=== PATIENT | male | born 1985 | race Caucasian/White ===

== ENCOUNTER 2016-09-14 17:05 | Inpatient (IN) ==
[2016-09-14 17:47] LABS: Basophils % 0.8 %; Eosinophils % 1.7 %; Immature Granulocytes % 0.4 % (0-4); Immature Platelets 4.3 % (1.1-6.1); Lymphocytes # 0.5 K/mcL (0.6-4.6); Lymphocytes % 19.4 %; Mean Corpuscular HGB Conc 30.5 g/dL (31.6-35.5); Mean Corpuscular Hemoglobin 38.6 pg (28.0-33.3); Mean Corpuscular Volume 126.5 fL (83.0-100.0); Monocytes # 0.2 K/mcL (0.0-1.3); Monocytes % 6.2 %; Neutrophils # 1.7 K/mcL (1.6-8.9); Nucleated Red Blood Cells 0.8 /100 WBC (0); Platelet Count 183 K/mcL (140-400); Red Blood Count 1.66 M/mcL (4.19-5.50); Red Cell Distribution Width 19.7 % (11.5-14.5); Segmented Neutrophils % 71.5 %
--- NOTE | 2016-09-14 17:48 | Emergency Department Note ---
Disposition Clinical Impression: Symptomatic anemia, Hereditary hemochromatosis Disposition: Admitted As Inpatient Condition: Good [facility] Provider[facility] - Forms: ED Satisfaction Letter Time of Disposition: 19:24 Weakness HPI - General Chief complaint: ED Weakness Stated complaint: low hgb/weakness Time Seen by Provider: 09/14/16 17:16 Source: patient, EMS Limitations: no limitations Nursing Notes Reviewed: Yes Vital Signs Reviewed: Yes - History of Present Illness Pt Subjective Complaint: generalized weakness/fatigue Onset (ago): day(s) (1) Duration: constant, gradually worsening Location: generalized Pain Scale: 0 Improves with: none Worsens with: exertion Context: history of similar Associated symptoms: Denies: chest pain, confusion, dark stools, diaphoresis, dysuria - Related Data Allergies Allergy/AdvReac Type Severity Reaction Status Date / Time No Known Allergies Allergy Verified 05/10/16 22:58 All systems ED: reviewed and negative except as stated. Constitutional: Reports: weakness. Denies: fever, chills Cardiovascular: Denies: chest pain, palpitations Gastrointestinal: Denies: hematemesis, melena, hematochezia Past Medical History - Past Medical History Source: patient, old records reviewed, nursing notes reviewed Medical history: Reports: GERD, hypertension Surgical history: Reports: non-contributory Psychiatric history: Reports: no psych history - Social History Smoking Status: Never smoker Smokeless Tobacco Status: No Alcohol use: Reports: none Drug use: Reports: none Physical Exam - General Limitations: no limitations General appearance: alert, in no apparent distress - Head Head exam: atraumatic, normocephalic, normal inspection - Eye Eye exam: Present: other (pale conjunctivae) - Expanded Eye Exam Pupils: Left: reactive - ENT ENT exam: normal exam, normal oropharynx, mucous membranes moist - Expanded ENT Exam External ear exam: Present: normal external inspection Mouth exam: Present: normal external inspection Teeth exam: Present: normal inspection Throat exam: Present: normal inspection - Neck Neck exam: Present: normal inspection, full ROM, trachea midline - Chest Chest inspection: Present: normal inspection, symmetric chest wall rise - Respiratory Respiratory exam: Present: normal lung sounds bilaterally - Cardiovascular Cardiovascular exam: Present: regular rate, normal rhythm, normal heart sounds - Abdominal Exam Abdominal exam: Present: soft, Non-Tender. Absent: tenderness, distention, guarding, rebound, rigidity - Extremities Exam Extremities exam: Present: normal inspection, full ROM. Absent: tenderness, pedal edema - Expanded Upper Extremity Exam Shoulder exam: Present: normal inspection, full ROM Arm exam: Present: normal inspection, full ROM Elbow exam: Present: normal inspection, full ROM Forearm/Wrist exam: Present: normal inspection, full ROM Hand exam: Present: normal inspection, full ROM Vascular exam: Normal: capillary refill, radial pulse - Expanded Lower Extremity Exam Hip/Pelvis exam: Present: normal inspection, full ROM Upper leg exam: Present: normal inspection, full ROM Knee exam: Present: normal inspection, full ROM Lower leg exam: Present: normal inspection, full ROM Ankle exam: Present: normal inspection, full ROM Foot/toe exam: Present: normal inspection, full ROM Neurovascular/Tendon exam: Absent: motor deficit, sensory deficit, tendon deficit - Back Exam Back exam: Present: normal inspection, full ROM. Absent: tenderness - Neurological Exam Neurological exam: Present: alert, oriented X3 - Expanded Neurological Exam Patient oriented to: Present: person, place, time Coma Scale Eye Opening: Spontaneous Coma Scale Motor Response: Obeys Commands Coma Scale Verbal Response: Oriented Coma Scale Total: 15 - Psychiatric Psychiatric exam: Present: normal affect, normal mood - Skin Skin exam: Present: warm, dry, intact, normal color Course Vital Signs Temperature 98.9 F 09/14/16 17:08 Pulse Rate 109 09/14/16 17:08 Respiratory Rate 20 09/14/16 17:08 Blood Pressure 163/91 09/14/16 17:08 O2 Sat by Pulse Oximetry 97 09/14/16 17:08 Temperature 98.9 F 09/14/16 17:08 Pulse Rate 113 09/14/16 19:09 Respiratory Rate 18 09/14/16 19:09 Blood Pressure 151/80 09/14/16 19:09 O2 Sat by Pulse Oximetry 96 09/14/16 19:09 Oxygen Delivery Oxygen Delivery Room Air Weakness - Lab Data Result diagrams: 09/14/16 17:38 Lab Results 09/14/16 Range/Units 17:38 WBC 2.4 L (4.3-11.1) K/mcL RBC 1.66 L (4.19-5.50) M/mcL Hgb 6.4 L (12.9-16.9) g/dL Hct 21.0 L (37.5-50.1) % MCV 126.5 H (83.0-100.0) fL MCH 38.6 H (28.0-33.3) pg MCHC 30.5 L (31.6-35.5) g/dL RDW 19.7 H (11.5-14.5) % Plt Count 183 (140-400) K/mcL MPV 10.0 (9.4-12.4) fL Immature Gran % 0.4 (0-4) % Seg Neutrophils % 71.5 % Lymphocytes % 19.4 % Monocytes % 6.2 % Eosinophils % 1.7 % Basophils % 0.8 % Neutrophils # 1.7 (1.6-8.9) K/mcL Lymphocytes # 0.5 L (0.6-4.6) K/mcL Monocytes # 0.2 (0.0-1.3) K/mcL Eosinophils # 0.0 (0.0-0.6) K/mcL Basophils # 0.0 (0.0-0.2) K/mcL Nucleated RBCs/100 WBC 0.8 H (0) /100 WBC Immature Plt Fraction 4.3 (1.1-6.1) % Polychromasia 1+ A (Not Present) Critical Care Time Critical Care Time: Yes Total Critical Care Time: 35 Attestation: Critical care performed: Time is exclusive of separately billable procedures. Time includes: direct patient care, patient reassessment, coordination of patient care, interpretation of data (laboratory data, radiology data, and respiratory data), review of patient's medical records, medical consultation and documentation of patient care. Procedures included in critical care time: Procedures excluded from critical care time:
[2016-09-14 18:09] LABS: Hemoglobin 6.4 g/dL (12.9-16.9)
[2016-09-14 18:11] LABS: Polychromasia 1+ (Not Present)
[2016-09-14] MEDS ORDERED: Naloxone 0.4 MG/ML INJ IVP PRN ×2 (21:14→21:31)
[2016-09-14] MEDS ORDERED: Ibuprofen 400 MG TABLET PO PRN (21:20)
--- NOTE | 2016-09-14 21:52 | Internal Med History&Physical ---
Date of Encounter: 09/14/16 Time of Encounter: 21:46 Assessment and Plan (1) Symptomatic anemia Current visit: Yes Status: Acute Trend H/H, to get 2 pRBC. Check H/H in the a.m (2) Hereditary hemochromatosis Current visit: Yes Status: Acute [facility]. Continue follow up with GI and heme outpatient (3) GERD (gastroesophageal reflux disease) Current visit: Yes Status: Acute Protonix. COntinue to monitor closely Internal Medicine - H&P: HPI Chief complaint: dizziness, shaky, confusion Admitted From: Home Plans for Post Hospital Care: Home History of present illness: Mr. Silverman is a 31 year old male which hx of reported hemochromatosis who presents with symptomatic anemia. He woke up early this morning with dizziness, confused and shaky. No improving or relieving factors. Worsen with exertion. On review, he has required frequent blood transfusion since this year in April and August 2016. 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 Past Med Surg Social Fam HX - Past Medical History Source: patient Medical history: GERD, hypertension Psychiatric history: no psych history - Past Surgical History Surgical History: no surgical history, non-contributory - Social History Smoking Status: Never smoker Smokeless Tobacco Status: No Alcohol use: none Drug use: none - Family History Father Adopted: No Hx Family Cancer: Yes Internal Medicine - H&P: Meds Pantoprazole Sodium [Protonix] 40 mg PO DAILY 09/14/16 [History] Allergies No Known Allergies Allergy (Verified 09/14/16 19:46) All Systems PM: A 10-system review of systems was performed and is negative for pertinent findings except as documented above in the HPI. Review of systems: ROS. 14 point review of systems reviewed. Pertinent positive or negative as per HPI or otherwise reviewed as negative - Constitutional Vitals: Temp Pulse Resp BP Pulse Ox 98.9 F 105 18 155/86 97 09/14/16 21:24 09/14/16 21:24 09/14/16 21:24 09/14/16 21:24 09/14/16 21:24 Exam: General - AAO x 3 Psych - Appropriate affect/speech. No agitation Eyes - EJ. Eye lids intact. No scleral icterus ENT - Oral mucosa pink, dentition intact. External ear clear/dry/intact. No thyromegaly Lymphatics - No cervical/inguinal lympadenopathy Neuro - No gross peripheral or central neuro deficits with intact CN 2-12 exam Heart - Sinus. RRR. S1 and S2 present. No added HS/murmurs appreciated. No elevated JVD appreciated. No calf swellings/erythema Lung - Adequate air entry b/l, No crackes/wheezes appreciated GI - Soft, non-tender. No hepatosplenomegaly/ascities. BS+ - No CVA/suprapubic tenderness or palpable bladder distension Skin - Intact. No rash/petechiae/ecchymosis. Warm extremities MSK - Joints with normal ROM. No joint swellings Internal Med - H&P Results - Labs CBC & Chem 7: 09/14/16 17:38
[2016-09-14] MEDS ORDERED: 0.9 % Sodium Chloride 250 ML ONE (23:40)
[2016-09-15] MEDS ORDERED: 0.9 % Sodium Chloride 250 ML ONE (03:43)
[2016-09-15 05:23] LABS: Basophils % 0.8 %; Eosinophils # 0.1 K/mcL (0.0-0.6); Eosinophils % 2.1 %; Hematocrit 22.6 % (37.5-50.1); Hemoglobin 6.9 g/dL (12.9-16.9); Immature Granulocytes % 1.2 % (0-4); Immature Platelets 6.3 % (1.1-6.1); Lymphocytes # 0.7 K/mcL (0.6-4.6); Lymphocytes % 29.9 %; Mean Corpuscular HGB Conc 30.5 g/dL (31.6-35.5); Mean Corpuscular Hemoglobin 37.3 pg (28.0-33.3); Mean Corpuscular Volume 122.2 fL (83.0-100.0); Mean Platelet Volume 10.1 fL (9.4-12.4); Monocytes # 0.2 K/mcL (0.0-1.3); Monocytes % 6.6 %; Neutrophils # 1.4 K/mcL (1.6-8.9); Nucleated Red Blood Cells 1.2 /100 WBC (0); Platelet Count 168 K/mcL (140-400); Red Blood Count 1.85 M/mcL (4.19-5.50); Segmented Neutrophils % 59.4 %
[2016-09-15 05:46] LABS: Anisocytosis 2+ (Not Present); Hypochromasia Present (Not Present); Polychromasia 1+ (Not Present)
[2016-09-15 05:47] LABS: Macrocytosis Present (Not Present)
[2016-09-15 05:48] LABS: Platelet Estimate Normal (Normal)
[2016-09-15 07:48] VITALS: BP 142/68
[2016-09-15 08:53] LABS: Basophils # 0.1 K/mcL (0.0-0.2); Basophils % 1.4 %; Eosinophils # 0.1 K/mcL (0.0-0.6); Eosinophils % 2.3 %; Immature Granulocytes % 0.6 % (0-4); Lymphocytes # 0.7 K/mcL (0.6-4.6); Lymphocytes % 20.1 %; Mean Corpuscular HGB Conc 31.9 g/dL (31.6-35.5); Mean Corpuscular Hemoglobin 37.2 pg (28.0-33.3); Mean Corpuscular Volume 116.9 fL (83.0-100.0); Mean Platelet Volume 10.3 fL (9.4-12.4); Monocytes # 0.2 K/mcL (0.0-1.3); Neutrophils # 2.4 K/mcL (1.6-8.9); Nucleated Red Blood Cells 0.9 /100 WBC (0); Platelet Count 174 K/mcL (140-400); Red Blood Count 2.31 M/mcL (4.19-5.50); Segmented Neutrophils % 69.6 %
[2016-09-15 08:59] LABS: Hemoglobin 8.6 g/dL (12.9-16.9)
[2016-09-15 09:05] LABS: BUN/Creatinine Ratio 10 (6-26); Blood Urea Nitrogen 7 mg/dL (8-26); Calcium 9.2 mg/dL (8.6-10.8); Carbon Dioxide 27 mEq/L (19-29); Chloride 100 mEq/L (98-109); Glucose 106 mg/dL (70-99); Osmolality,Calculated 282 (280-300); Potassium 3.6 mEq/L (3.5-4.5); Sodium 137 mEq/L (136-145); eGFR For African Americans > 60 (> 60); eGFR For Non-African Americans > 60 (> 60)
[2016-09-15 09:43] LABS: Anisocytosis 2+ (Not Present); Macrocytosis Present (Not Present); Platelet Estimate Normal (Normal); Polychromasia 2+ (Not Present)
[2016-09-15] MEDS ORDERED: Ondansetron 4 MG/2 ML VIAL IVP PRN (10:12)
--- NOTE | 2016-09-15 10:15 | Discharge Summary ---
Date of Encounter: 09/15/16 Time of Encounter: 09:40 - Discharge Diagnosis (1) Symptomatic anemia Priority: Primary Status: Acute (2) Hereditary hemochromatosis Priority: Primary Status: Chronic (3) GERD (gastroesophageal reflux disease) Priority: Secondary Status: Chronic Qualifiers: Esophagitis presence: esophagitis presence not specified Qualified Code(s) : K21.9 - Gastro-esophageal reflux disease without esophagitis - Discharge Medications Home Medications: Pantoprazole Sodium [Protonix] 40 mg PO DAILY 09/14/16 [History] Allergies/Adverse Reactions: Allergies No Known Allergies Allergy (Verified 09/14/16 19:46) Date of admission: 09/14/16 19:44 Primary care physician: PCP [place] Discharging clinician: Nancy Rubalcava Anticipated date of discharge: 09/15/16 - Patient Status Disposition: Home, Self-Care Condition: Good Functional capacity at discharge: independent ambulation Overall status at discharge: patient is progressing back to baseline - Discharge Instructions Instructions: Anemia (DC) Follow Up With: [facility] [Outside] - 09/20/16 11:00 am Additional Instructions: F/up with PCP at [facility] in 1-2 weeks F/up with Hematology at [facility] as scheduled - Diet and Activity Activity: resume usual activities as tolerated Diet: regular diet Hospital course: Mr. Silverman is a 31 year old male who was admitted with nausea, vomiting and fatigue. Routine labs showed acute anemia and he received 2 units PRBC transfusion with appropriate improvement in Hb>8. He follows with Hematology and GI at [facility]- [facility] [place], [place] and is diagnosed with hereditary hemochromatosis and reports having required PRBC transfusion due to symptomatic anemia twice early this year. However he reports not being started on any medications for this except PPI for GERD. He is currently medically and hemodynamically stable for discharge and is strongly encouraged to f/up with Hematology and he verbalized understanding. - Time Spent with Patient Total time spent providing and/or coordinating discharge services: Greater than 30 minutes (40 min) - Constitutional Vitals: Temp Pulse Resp BP Pulse Ox 98.5 F 102 18 142/68 97 09/15/16 07:45 09/15/16 07:45 09/15/16 07:45 09/15/16 07:45 09/15/16 08:00 General appearance: Present: A&O X 3, answers questions appropriately - Cardiovascular Cardiovascular exam: Present: RRR, +S1, +S2, tachycardia. Absent: diastolic murmur, gallop, rubs, systolic murmur
== END 2016-09-15 12:10 | disposition home or self-care (01) | DRG 812 ==
LOC: EMEROO 17:05 → 3ANU 17:05 → OBSVTOIN 19:44 → 3ANU 20:07
PROVIDERS: ADMIT Internal Medicine; ATTEND Internal Medicine